=== PATIENT | male | born 1980 | race Caucasian/White ===

== ENCOUNTER 2018-07-10 22:26 | Emergency (ER) | payer OTHER, MEDICAID, SELFPAY ==
[2018-07-10 22:35] VITALS: BP 146/98; PULSE 120; RESP 20; TEMP 36.6; O2SAT 99; BMI 28.5
--- NOTE | 2018-07-10 23:58 | ED_ITS ---
HPI - Skin/Abscess/Foreign Bdy General Chief complaint: Skin/Abscess/Foreign Body Stated complaint: POSSIBLE TICK ON STOMACH Time Seen by Provider: 07/10/18 23:53 Source: patient Mode of arrival: ambulatory Limitations: no limitations History of Present Illness HPI narrative: The pain was walking [place] today, he discovered a tick on his right anterior abdomen. The tick is small, he did not feel a take biting. There were no other tick injuries. He has no pets at home, he has has seen no ticks at home. His last tetanus injection was about 6 years ago. 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 [facility] Medical History No active medical problems (Acute) Surgical History No pertinent past surgical history (Acute) Family History (Updated 11/04/14 @ 00:00 by Conversion Provider) Father Stroke Grandfather Heart attack Mother Hypertension Grandmother Stroke Social History Smoking Status: Never smoker Family History Father Stroke Grandfather Heart attack Mother Hypertension Grandmother Stroke Social History Smoking Status: Never smoker Exam Initial Vital Signs Initial Vital Signs: Vital Signs Temperature 97.9 F 07/10/18 22:35 Pulse Rate 120 H 07/10/18 22:35 Respiratory Rate 20 07/10/18 22:35 Blood Pressure 146/98 H 07/10/18 22:35 Pulse Oximetry 99 07/10/18 22:35 Const General: cooperative and well developed Nutritional Appearance: well nourished Orientation: alert, awake, oriented x3 and not confused GI Inspection: non-distended Palpation: soft, no hepatosplenomegaly, No guarding, No pulsatile mass and No tender Other: There is a welt at the right lower anterior abdomen for the patient's nurse removed the tick. There is no evidence of the head or other remnants of the tick. Course Vital Signs - 8 hr 07/10/18 22:35 Temperature 97.9 F Pulse Rate 120 H Respiratory Rate 20 Blood Pressure 146/98 H Pulse Oximetry 99 Discharge Plan Departure Patient Disposition: Home Clinical Impression: Tick bite of abdomen Qualifiers: Encounter type: initial encounter Qualified Code(s): S30.861A - Insect bite (nonvenomous) of abdominal wall, initial encounter Instructions: How to Remove a Tick Activity Restrictions/Additional Instructions: Apply topical antibiotic to the site 2 times daily for 2 days. Follow-up with her doctor return here if become ill such as fever, shakes or chills. Prescriptions: No Action No Known Home Medications RF: 0 Referrals: Veronica Roldan ARNP [Primary Care Provider] -
== END 2018-07-10 23:58 | disposition home or self-care (01) ==
PROVIDERS: Emergency Provider Emergency Medicine; Family Provider Internal Medicine; PCP Internal Medicine
DX: S30.861A Insect bite (nonvenomous) of abdominal wall, initial encounter (principal)
CPT/HCPCS: 99282